=== PATIENT | female | born 1990 | race Caucasian/White ===

== ENCOUNTER 2017-10-22 16:30 | Outpatient (RCR) | payer BC, SELFPAY | END 2017-10-22 23:59 | LOC: PT 16:30 | PROVIDERS: Visit Provider Orthopaedic Surgery | DX: M25.562 Pain in left knee (principal) | CPT/HCPCS: 97110; 97161 ==

== ENCOUNTER 2017-11-09 13:30 | Outpatient (RCR) | payer BC, SELFPAY | END 2017-11-09 13:33 | disposition home or self-care (01) | LOC: PT 13:30 | PROVIDERS: Visit Provider Orthopaedic Surgery | DX: M25.562 Pain in left knee (principal) | CPT/HCPCS: 97110 ==

== ENCOUNTER 2017-12-06 14:36 | Emergency (ER) | payer BC, SELFPAY ==
[2017-12-06 14:59] VITALS: BP 130/62; PULSE 110; RESP 20; TEMP 37.5; O2SAT 97; BMI 21.9
[2017-12-06 15:20] LABS: UTC Influenza A Antigen Negative (Negative); UTC Influenza B Antigen Negative (Negative)
--- NOTE | 2017-12-06 15:34 | HMH.EDUTC ---
[facility] [place] Clinical Impression: Gastroenteritis Disposition: Home, Self-Care Condition on Discharge: Good Instructions: DI for Viral Gastroenteritis -- Adult Additional Instructions: * Monitor Temp. Seek treatment if fever returns or worsens * Follow up immediately for new or worsening symptoms OR no continued improvement over the next 48 hours. * Increase fluids. Water, gatorade, powerade, juice OR pedialyte with limited formula/dairy in children. * No food is ok as long as you or your child is drinking. If you are ready to eat, start bland. bananas, rice, applesauce, toast, soup * Contagious until no diarrhea, vomiting, fever x 24 hours without medication * If nausea worsens or vomiting restarts, be sure to follow up as I don't care to prescribe anti-emetics as we discussed. * Avoid anti-diarrheals unless told otherwise. Best to let the virus run its course. Follow up with primary care IMMEDIATELY for new or worsening symptoms OR no continued improvement over the next 48 hours. Forms: Work/School Release Time of Disposition: 15:49 Medical Decision Making Vital Signs: 12/06/17 14:59 Temperature 99.5 F Temperature Source Temporal Artery Scan Pulse Rate [Right Brachial] 110 H Respiratory Rate 20 Blood Pressure [Right Arm] 130/62 Blood Pressure Mean [Right Arm] 84 Blood Pressure Source [Right Arm] Automatic Cuff Blood Pressure Position [Right Arm] Sitting 02 Sat by Pulse Oximetry 97 Oxygen Delivery Method Room Air - Lab Data Lab results reviewed: Yes: I reviewed the patient's lab results. Lab Results 12/06/17 15:02: Influenza Type A Ag Negative, Influenza Type B Ag Negative - Rip Inquiry Pt receiving controlled substance: No [facility] [place] - General Stated complaint: Poss Food Poison Time Seen by Provider: 12/06/17 15:34 Mode of Arrival: Ambulatory Source of Information: Patient Limitations: No Limitations Description of Symptoms (Recalled from Triage Doc. by RN): reports n/v/d, body aches HEENT Symptoms (Recalled from RN notes): No Resp Symptoms (Recalled from RN notes): No Skin Symptoms (Recalled from RN notes): No MS Symptoms (Recalled from RN notes): Yes (reports body aches) Functional Status (Recalled from RN notes): n/a - History of Present Illness Provider Complaint: c/o I think food poisoning but just want to rule out the flu . N/V/D with low grade fever 99 and bodyaches starting at [place] last night after eating at [employer] for supper. Friend ate same foods but is not ill. No other known sick contacts. Frequent watery huff diarrhea that has slowed. Approx 10 times since onset but less this afternoon. Vomiting approx 3-4 times, once only dry heaves. Also more so initially and improved this afternoon. Hasn't taken or tried anything except not eating so far today. Drinking and tolerating fluids ok. Declines zofran. Not nauseated right now. - Related Data Home Medications Medication Instructions Recorded Confirmed No Known Home Medications [No 12/06/17 12/06/17 Known Home Medications] Allergies Allergy/AdvReac Type Severity Reaction Status Date / Time No Known Allergies Allergy Unverified 10/12/17 14:48 - Worker's Comp Is this a Worker's Comp case?: No Is this an [facility] Worker's Comp?: No Is this a [place] Worker's Comp?: No [facility] History I have reviewed the patient's past medical history: Yes (denies PMHx) Medical History: Denies:: Cancer, Diabetes Mellitus Type 1, Diabetes Mellitus Type 2, Hypertension, MRSA Other Surgeries: Yes: Other (cleft palate at 18 months old) Amputation: No Fractures: No - *Social History Educational Level: Completed High School Smoking Status: Never smoker Alcohol Intake: never - Psychiatric History Expresses thoughts of harming self/others: None Suicide Plan Description: No Plan ROS Obtained: Yes Systems reviewed as appropriate & no additional complaints - Constitutional Constitutional: Reports as per HPI, Reports diffi
--- NOTE | 2017-12-06 15:42 | ED_ITS ---
[facility] [place] Clinical Impression: Gastroenteritis Disposition: Home, Self-Care Condition on Discharge: Good Instructions: DI for Viral Gastroenteritis -- Adult Additional Instructions: * Monitor Temp. Seek treatment if fever returns or worsens * Follow up immediately for new or worsening symptoms OR no continued improvement over the next 48 hours. * Increase fluids. Water, gatorade, powerade, juice OR pedialyte with limited formula/dairy in children. * No food is ok as long as you or your child is drinking. If you are ready to eat, start bland. bananas, rice, applesauce, toast, soup * Contagious until no diarrhea, vomiting, fever x 24 hours without medication * If nausea worsens or vomiting restarts, be sure to follow up as I don't care to prescribe anti-emetics as we discussed. * Avoid anti-diarrheals unless told otherwise. Best to let the virus run its course. Follow up with primary care IMMEDIATELY for new or worsening symptoms OR no continued improvement over the next 48 hours. Forms: Work/School Release Time of Disposition: 15:49 Medical Decision Making Vital Signs: 12/06/17 14:59 Temperature 99.5 F Temperature Source Temporal Artery Scan Pulse Rate [Right Brachial] 110 H Respiratory Rate 20 Blood Pressure [Right Arm] 130/62 Blood Pressure Mean [Right Arm] 84 Blood Pressure Source [Right Arm] Automatic Cuff Blood Pressure Position [Right Arm] Sitting 02 Sat by Pulse Oximetry 97 Oxygen Delivery Method Room Air - Lab Data Lab results reviewed: Yes: I reviewed the patient's lab results. Lab Results 12/06/17 15:02: Influenza Type A Ag Negative, Influenza Type B Ag Negative - Rip Inquiry Pt receiving controlled substance: No [facility] [place] - General Stated complaint: Poss Food Poison Time Seen by Provider: 12/06/17 15:34 Mode of Arrival: Ambulatory Source of Information: Patient Limitations: No Limitations Description of Symptoms (Recalled from Triage Doc. by RN): reports n/v/d, body aches HEENT Symptoms (Recalled from RN notes): No Resp Symptoms (Recalled from RN notes): No Skin Symptoms (Recalled from RN notes): No MS Symptoms (Recalled from RN notes): Yes (reports body aches) Functional Status (Recalled from RN notes): n/a - History of Present Illness Provider Complaint: c/o I think food poisoning but just want to rule out the flu . N/V/D with low grade fever 99 and bodyaches starting at [place] last night after eating at [email or web address] for supper. Friend ate same foods but is not ill. No other known sick contacts. Frequent watery huff diarrhea that has slowed. Approx 10 times since onset but less this afternoon. Vomiting approx 3- 4 times, once only dry heaves. Also more so initially and improved this afternoon. Hasn't taken or tried anything except not eating so far today. Drinking and tolerating fluids ok. Declines zofran. Not nauseated right now. - Related Data Home Medications Medication Instructions Recorded Confirmed No Known Home Medications [No 12/06/17 12/06/17 Known Home Medications] Allergies Allergy/AdvReac Type Severity Reaction Status Date / Time No Known Allergies Allergy Unverified 10/12/17 14:48 - Worker's Comp Is this a Worker's Comp case?: No Is this an [facility] Worker's Comp?: No Is this a [place] Worker's Comp?: No [facility] History I have reviewed the patient's past medical history: Yes (denies PMHx) Medic
[2017-12-06 15:49] VITALS: BP 127/77; PULSE 61; RESP 18; TEMP 36.6; O2SAT 99
== END 2017-12-06 15:50 | disposition home or self-care (01) ==
PROVIDERS: Emergency Provider Nurse Practitioner Family
DX: K52.9 Noninfective gastroenteritis and colitis, unspecified (principal)
CPT/HCPCS: 87804; 99202

== ENCOUNTER → 2018-06-24 15:00 | Outpatient (CLI) | payer BC, SELFPAY ==
[2018-06-24 15:18] LABS: Basophils % 0.5 % (0.1-2.0); Eosinophils # 0.1 K/mm3 (0.0-0.4); Eosinophils % 2.1 % (0.1-12.0); Hematocrit 39.7 % (37.0-47.0); Hemoglobin 13.7 g/dL (12.2-16.2); Lymphocytes # 1.3 K/mm3 (0.7-4.5); Lymphocytes % 24.7 K/mm3 (10-50); Mean Corpuscular HGB Conc 34.6 g/dL (31.8-35.4); Mean Corpuscular Hemoglobin 28.2 pg (27.0-31.2); Mean Corpuscular Volume 81.4 fl (81-99); Monocytes # 0.3 K/mm3 (0.1-1.0); Monocytes % 5.1 % (1.7-9.3); Neutrophils # 3.5 K/mm3 (1.8-7.8); Neutrophils % 67.7 % (37.0-80.0); Platelet Count 242 K/mm3 (142-424); Red Blood Count 4.87 M/mm3 (4.20-5.40); Red Cell Distribution Width 13.5 % (11.5-17.5); White Blood Count 5.1 K/mm3 (4.8-10.8)
[2018-06-24 15:54] LABS: Thyroid Stimulating Hormone 0.62 uIU/ml (0.358-3.740)
[2018-06-24 18:17] LABS: Free T4 (Free Thyroxine) 1.05 ng/dl (0.76-1.46)
== END ==
PROVIDERS: PCP Internal Medicine Adolescent Medicine; Referring Provider Internal Medicine Adolescent Medicine; Visit Provider Internal Medicine Adolescent Medicine
DX: R53.83 Other fatigue (principal)
CPT/HCPCS: 36415; 84439; 84443; 85025

== ENCOUNTER → 2020-05-24 08:58 | Outpatient (CLI) | payer BC, SELFPAY ==
--- NOTE | 2020-05-24 09:07 | US_ITS ---
PROCEDURE: US GALLBLADDER CLINICAL INDICATION: RUQ PAIN x a few months. Nausea. COMPARISON: No exams were available for comparison FINDINGS: Pancreas: Unremarkable/Not well seen Liver: Unremarkable. There is appropriate direction of blood flow within a non dilated portal vein. Right kidney: Unremarkable appearing. No hydronephrosis. Gallbladder: No stones are evident. No demonstrated intraluminal sludge. There is no gallbladder wall thickening. Common duct is normal in diameter. Incidentally noted small pleural effusion in the visualized right lung base. IMPRESSION: 1.Negative gallbladder ultrasound. No stones evident. 2. Right pleural effusion Dictated by: Wing Chau 05/24/2020 10:28 Electronically signed by Wing Chau in [place] 05/24/2020 10:28
== END ==
PROVIDERS: PCP Internal Medicine Adolescent Medicine; Visit Provider Nurse Practitioner Family
DX: R10.11 Right upper quadrant pain (principal)
CPT/HCPCS: 76705

== ENCOUNTER → 2020-05-29 09:22 | Outpatient (CLI) | payer BC, SELFPAY ==
--- NOTE | 2020-05-29 09:25 | XR_ITS ---
PROCEDURE: XR CHEST 2V CLINICAL HISTORY: ACUTE PULMONARY EDEMA COMPARISON: US US GALLBLADDER from 05/24/2020 FINDINGS: The cardiomediastinal silhouette and pulmonary vascularity are within normal limits. The lungs are clear without infiltrates, suspicious nodules, or pleural effusions. There is calcified granuloma in the lingula. There was a pleural effusion noted on a recent abdominal ultrasound on the right. This is not demonstrated on today's exam. No acute bony anomalies IMPRESSION: No acute findings. Dictated b Tc Hanna MD 05/29/2020 14:03 Tc Hanna MD in [place] 05/29/2020 14:03
== END ==
PROVIDERS: PCP Internal Medicine Adolescent Medicine; Visit Provider Nurse Practitioner Family
DX: J81.0 Acute pulmonary edema (principal)
CPT/HCPCS: 71046

== ENCOUNTER → 2021-03-05 15:46 | Outpatient (CLI) | payer BC, SELFPAY ==
[2021-03-05 16:16] LABS: Basophils % 0.3 % (0.1-2.0); Eosinophils # 0.2 K/mm3 (0.0-0.4); Eosinophils % 3.3 % (0.1-12.0); Hematocrit 36.5 % (37.0-47.0); Hemoglobin 12.4 g/dL (12.2-16.2); Lymphocytes # 1.4 K/mm3 (0.7-4.5); Lymphocytes % 28.6 % (10-50); Mean Corpuscular HGB Conc 34.1 g/dL (31.8-35.4); Mean Corpuscular Hemoglobin 28.3 pg (27.0-31.2); Mean Corpuscular Volume 83.1 fl (81-99); Mean Platelet Volume 8.2 fl (7.4-10.4); Monocytes # 0.3 K/mm3 (0.1-1.0); Monocytes % 5.6 % (1.7-9.3); Neutrophils # 3.1 K/mm3 (1.8-7.8); Neutrophils % 62.1 % (37.0-80.0); Platelet Count 203 K/mm3 (142-424); Red Blood Count 4.39 M/mm3 (4.20-5.40); Red Cell Distribution Width 14.7 % (11.5-17.5); White Blood Count 4.9 K/mm3 (4.8-10.8)
[2021-03-05 16:29] LABS: Chloride 103 mmol/L (98-107); Potassium 3.5 mmoL/L (3.5-5.1); Sodium 137 mmol/L (136-145)
[2021-03-05 16:31] LABS: HCG Qualitative, Serum Negative (Negative)
[2021-03-05 16:32] LABS: Blood Urea Nitrogen 12 mg/dl (7-17); Estimated Glomerular Filt Rate 97 ml/min (>60); GFR (African American) 117 ML/MIN (>60)
[2021-03-05 16:33] LABS: Anion Gap 8.5 mEq/L (5-15); Calcium 9.5 mg/dl (8.4-10.2); Carbon Dioxide 29 mmol/L (22.0-30.0); Glucose 90 mg/dl (74-100)
== END ==
PROVIDERS: Visit Provider Nurse Practitioner Obstetrics & Gynecology
DX: Z01.818 Encounter for other preprocedural examination (principal); Z30.09 Encounter for other general counseling and advice on contraception; Z11.52 Encounter for screening for COVID-19
CPT/HCPCS: 36415; 80048; 84703; 85025; U0003

== ENCOUNTER 2021-03-07 06:04 | Day surgery (SDC) | payer BC, SELFPAY ==
[2021-03-05 12:22] VITALS: BMI 26.6
[2021-03-07] VITALS (11 sets, daily range): BP systolic 105–158; BP diastolic 63–84; PULSE 64–95; RESP 16–18; TEMP 36.3–43; O2SAT 96–99
--- NOTE | 2021-03-07 07:07 | P.PN_ITS ---
[facility] Anesthesia Checklist - Structural Data Admitted From: Home Planned Operative Procedure/s: bilat salpingectomy Consent for Planned Operative Procedure(s) Verified: Yes - Additional verifications Anesthesia Reactions: No Hx Blood Transfusions: No Blood Transfusion Reaction: No - Airway Assessment C-Spine Mobility Assessed: Yes TMJ Mobility Assessed: Yes Dentition: Good Dentition - Neurological Assessment Level of Consciousness: Awake, Alert, Appropriate - Anesthesia Plan Anesthesia Risk discussed: Yes Anesthesia Plan: Verified ASA Class: I Anesthesia Type: General [facility] History I have reviewed the patient's past medical history: Yes Medical History: Denies:: Cancer, Diabetes Mellitus Type 1, Diabetes Mellitus Type 2, Hypertension, Internal Pacemaker, MRSA, Seizures *Have you ever received a pneumonia vaccine?: No *Have you received a flu vaccine this season?: No Other Medical History: Denies: Blood Transfusion Reaction Anesthesia experience/problems:: none Other Surgeries: Yes: Other. No: Pacemaker Amputation: No Fractures: No - *Social History Last grade of school completed: Some college Smoking Status: Never smoker Alcohol Intake: never Alcohol Intake Frequency:: other Substance Use Type: denies use *Occupational Status:: employed Housing: house *Travel in the last 8 weeks: [place] Family Hx:: Cancer
--- NOTE | 2021-03-07 08:23 | P.PN_ITS ---
[facility] Anesthesia Record Part I Intake, IV Amount: 1,000 Estimated blood loss (mL): 25 Urine output (mL): 0 Blood Pressure: 132/67 SaO2: 96 Pulse Rate: 69 Respiratory Rate: 16 Temperature: 97.9 F Patient is:: Drowsy, Stable Stable to PACU at:: 08:20
--- NOTE | 2021-03-07 08:42 | P.OP_ITS ---
Date of procedure: 03/07/21 Pre-op Diagnosis:: Desire for sterilization Post-op Diagnosis:: Desire for sterilization Procedure performed:: Laparoscopic bilateral salpingectomy Surgeon:: Andre Harden MD [employer]PER[employer]ENDENT [employer]:: Mathieu Wolf Anesthesia: GETRebecca Estimated blood loss (mL): 25 Clinical Note:: She is a 30-year-old 1 para 1 who expressed desire for sterilization. The risks and benefits as well as the irreversibility of bilateral salpingectomy were discussed with the patient prior to surgery. Operative findings:: She had a normal-appearing anteverted uterus. The pelvis appeared normal. Ovaries and tubes appeared normal. The upper abdomen appeared normal. The appendix was visualized and appeared normal as well. Operative note:: She was taken to the operating room where general anesthesia was found be adequate. She was prepped and draped in normal sterile fashion in the semilithotomy position. A weighted speculum was placed in the vagina and the anterior lip of the cervix was grasped with a tenaculum. I then inserted a Kami uterine manipulator into the cervical os. The balloon was then insufflated. I changed gloves and injected 10 cc of 0.5% ropivacaine around her umbilicus and made a small incision within the umbilicus. I inserted a Veress needle into the abdominal cavity. The peritoneal cavity was then insufflated with carbon dioxide gas to a pressure of 20 mmHg. I then inserted a 5 millimeter trocar under direct vision. I injected through and through the pubic hairline, made a small incision here and inserted an 8 mm trocar under direct vision. I identified the inferior epigastric artery on the left side, went lateral to these and injected through and through. I then placed a 5 mm trocar here under direct vision. The pelvis and upper abdomen were then inspected and the findings were as previously dictated. I grasped the right tube at the cornua and using harmonic scalpel on coagulation mode I cut through the tube. I then grasped the distal tube and using harmonic scalpel cut along the mesosalpinx. The tube was removed through 8 mm trocar site. This was similarly performed on the patient's left side. I then injected 30 cc of 0.5% ropivacaine into the pelvis. After assuring hemostasis the gas was let out of the abdomen and hemostasis was once again assured. The abdomen was then reinsufflated. The secondary trochars were removed under direct vision. The gas was let out her abdomen. The primary trocar was then removed. The 8 mm trocar site was closed deeply with 2-0 Vicryl suture followed by subcuticular 4-0 Monocryl suture. The 5 mm trocar sites were closed with subcuticular 4-0 Monocryl. Sterile dressings were applied. The patient tolerated the procedure well and was taken to the recovery room in excellent condition. All sponge instrument and needle counts were correct. The estimated blood loss was less than 25 cc. Condition: stable Disposition: PACU Specimens:: Bilateral fallopian tubes Complications:: None
--- NOTE | 2021-03-07 09:43 | HMH.ANESII ---
[facility] Anesthesia Record Part II Discharge Time: 08:50 Destination: Surgical Day Care (OP Surgery) PACU nurse assessment reviewed?: Yes Patient Condition:: Good Anesthesia Complications:: None Swallowing reflex intact?: Yes Cyanosis?: No Blood Pressure: 132/74 Pulse Rate: 71 Temperature: 97.3 F Mental Status: Alert & Oriented Pain level:: 0 Nausea and/or vomitting:: None Intake, IV Amount: 0
== END 2021-03-07 09:25 | disposition home or self-care (01) ==
PROVIDERS: PCP Internal Medicine Adolescent Medicine; Visit Provider Nurse Practitioner Obstetrics & Gynecology
PROC: (CPT 58661; principal; 2021-03-07 07:30)
DX: Z30.2 Encounter for sterilization (principal); Z80.9 Family history of malignant neoplasm, unspecified
CPT/HCPCS: 58661; 96374; J2405; J2710

== ENCOUNTER → 2023-04-28 15:29 | Outpatient (CLI) | payer BC, SELFPAY ==
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
== END ==
PROVIDERS: PCP Internal Medicine Adolescent Medicine; Visit Provider Physician Assistant
DX: M54.50 Low back pain, unspecified (principal)
CPT/HCPCS: 72110

== ENCOUNTER 2024-06-16 10:00 | Outpatient (RCR) | payer BC, SELFPAY | END 2024-06-16 10:05 | disposition home or self-care (01) | LOC: PT 10:00 | PROVIDERS: Visit Provider Podiatrist Foot & Ankle Surgery | DX: M72.2 Plantar fascial fibromatosis (principal) | CPT/HCPCS: 97014; 97035; 97110; 97140; 97163; 97164; G0283 ==

== ENCOUNTER 2024-07-24 09:36 | Outpatient (CLI) | payer BC, SELFPAY ==
--- NOTE | 2024-07-24 09:39 | MR_ITS ---
FINAL REPORT CLINICAL HISTORY: LEFT FOOT PAIN, medial sided FINDINGS: Multiplanar MR imaging of the left foot was performed without contrast. The bony structures are intact without evidence of fracture, bone bruise or marrow edema. The flexor and extensor tendons are intact. The musculature is intact. There is abnormal signal of the insertion of the plantar fascia at the medial base of the calcaneus. This is best seen on images 17-19 of series 8. There is soft tissue edema in the subcutaneous soft tissues along the medial ankle. IMPRESSION: Findings most consistent with mild to moderate plantar fasciitis. Nonspecific subcutaneous soft tissue edema overlying the medial malleolus. Reviewed, Interpreted and Dictated by Lon Clinton MD Transcribed by Ayde Magallon Authenticated and [facility]
== END 2024-07-24 23:59 | disposition home or self-care (01) ==
LOC: RAD 09:37
PROVIDERS: PCP Internal Medicine Adolescent Medicine; Visit Provider Podiatrist Foot & Ankle Surgery
DX: M79.672 Pain in left foot (principal)
CPT/HCPCS: 73718

== ENCOUNTER 2024-10-23 11:00 | Outpatient (RCR) | payer BC, SELFPAY | END 2024-10-23 23:59 | disposition home or self-care (01) | LOC: PT 11:00 | PROVIDERS: PCP Internal Medicine Adolescent Medicine; Visit Provider Podiatrist Foot & Ankle Surgery | DX: M72.2 Plantar fascial fibromatosis (principal) | CPT/HCPCS: 97035; 97110; 97163; 97530 ==

== ENCOUNTER 2025-05-02 15:52 | Outpatient (CLI) | payer BC, SELFPAY ==
--- NOTE | 2025-05-02 16:00 | US_ITS ---
PROCEDURE: US TRANSVAGINAL CLINICAL INDICATION: pelvic pain COMPARISON: No exams were available for comparison FINDINGS: Transvaginal sonographic images of the pelvis were obtained. UTERUS: 7.4cm x 5.1cmx 3.1cm anteverted with a combined endometrial thickness of 2.8mm. LEFT OVARY: 1.7 cmx1.1cmx1.8cm with a volume of 1.8ml. Left ovary is difficult to visualize but appears normal. RIGHT OVARY: 2.4cmx 1.8 cmx1.7 cm with a volume of 3.7ml. There are multiple small follicles. Both ovaries are seen and appear normal. Doppler flow to both ovaries are seen. There is no fluid in the cul-de-sac. IMPRESSION: 1. Anteverted uterus normal in shape and size. The endometrium is thin. 2. Both ovaries are seen and appear normal. The right ovary has numerous small follicles. 3. No fluid in the cul-de-sac. Dictated by: Andre Harden MD 05/02/2025 17:19 Andre Harden MD in [place] 05/02/2025 17:19
== END 2025-05-02 23:59 | disposition home or self-care (01) ==
LOC: RAD 15:53
PROVIDERS: PCP Internal Medicine Adolescent Medicine; Visit Provider Nurse Practitioner Obstetrics & Gynecology
DX: N83.01 Follicular cyst of right ovary (principal)
CPT/HCPCS: 76830